=== PATIENT | female | born 1965 ===

== ENCOUNTER 2018-01-06 08:23 | Day surgery (SDC) | payer SELFPAY ==
[~2018-01-06] VITALS: Ht 167.6 cm; Wt 59.0 kg
[2018-01-06] MEDS ORDERED: Lidocaine 1% 10mg/ml/EPI 0.01mg/ml 50ml INJ ONE (08:32)
--- NOTE | 2018-01-06 08:44 | Pre-Procedure Note/Attestation ---
Pre-Procedure Note/Attestation Complete Prior to Procedure Procedure Narrative: excision lesion of neck Indications for Procedure Pre-Operative Diagnosis: neck lesion Attestation I attest that I discussed the nature of the procedure; its benefits; risks and complications; and alternatives (and the risks and benefits of such alternatives ), prior to the procedure, with the patient (or the patient's legal guest relations representative). I attest that, if there was a reasonable possibility of needing a blood transfusion, the patient (or the patient's legal guest relations representative) was given the [facility] standardized written summary, pursuant to the [employer] [place] Blood Safety Act ([place] Health and Safety Code # 1645, as amended). I attest that I re-evaluated the patient just prior to the surgery and that there has been no change in the patient's H&P, except as documented below: DORIS SULTANA Jan 06, 2018 08:44
--- NOTE | 2018-01-06 08:46 | Brief Operative Note ---
Immediate Post Operative Note Operative Note Pre-op Diagnosis: neck lesion Procedure: excision neck scar contracture Post-op Diagnosis: same Surgeon: Rony Sultana Threader: none Anesthesia: local Specimen: none Complications: none Condition: stable Fluids: none Estimated Blood Loss: none Drains: none Implant(s) used?: No RONY SULTANA Jan 06, 2018 08:46
[2018-01-06 09:03] VITALS: BP 110/73
[2018-01-06 10:15] VITALS: BP 111/71
[2018-01-06 10:45] VITALS: BP 107/73
--- NOTE | 2018-01-07 18:00 | Operative Note - Dictated ---
DATE OF OPERATION: 01/06/2018 PREOPERATIVE DIAGNOSIS: Anterior cervical lesion. POSTOPERATIVE DIAGNOSIS: Anterior cervical lesion. PROCEDURE: Excision of lesion of the anterior cervical region. SURGEON: Rony Diehl M.D. ANESTHESIA: Local. DESCRIPTION OF PROCEDURE: The patient was marked with methylene blue while upright and awake. She was then placed supine on the operating table. The neck and face were prepped and draped in the usual fashion. The neck was injected with Xylocaine with epinephrine. Time was left for vasoconstriction. The borders of the lesion were incised with #10 scalpel. A vertical ellipse measuring 4.5 cm x 1.5 cm was then circumscribed. Incisions were carried through the skin with scalpel and the area was resected full thickness with a #10 scalpel. Examination of the tissue revealed underlying scar tissue, which was also excised. Bleeding points were controlled with electrocautery. The dermis was closed with interrupted sutures of 4-0 Monocryl and the skin was closed with interrupted sutures of 5-0 Prolene. Mastisol and Steri-Strips were applied. The patient tolerated the surgery well. She was returned to the recovery area in excellent condition. Estimated blood loss during the procedure was negligible. There were no intraoperative complications. Rony Diehl M.D. DR: Kendrick JOB#: [id number] CC:
== END 2018-01-06 11:00 | disposition home or self-care (01) ==
LOC: SUR 08:23
DX: R22.1 Localized swelling, mass and lump, neck (principal)
CPT/HCPCS: 81025